=== PATIENT | male | born 1965 | race Caucasian/White ===

== ENCOUNTER → 2018-06-29 | Outpatient (CLI) | payer OTHER ==
[2018-07-01 17:43] LABS: TISSUE TRANSGLUTAMINASE IgA <2 U/mL (0-3)
== END ==
LOC: M LAB 16:34
DX: D50.9 Iron deficiency anemia, unspecified (principal)
CPT/HCPCS: 82784

== ENCOUNTER 2018-07-19 09:13 | Day surgery (SDC) | payer OTHER ==
[~2018-07-19 09:13] MED LIST: LIDOCAINE 2% INJ 100 MG/5 ML SDV (FOR ANES.) As Ordered; PROPOFOL 200 MG/20 ML VIAL As Ordered
[2018-07-19] MEDS: NS 1,000 ML IV (09:57)
[2018-07-19] MEDS ORDERED: PROPOFOL 200 MG/20 ML VIAL As Ordered (10:58)
== END 2018-07-19 11:54 | disposition home or self-care (01) ==
LOC: M OPP 09:13
DX: D50.9 Iron deficiency anemia, unspecified (principal); K57.30 Diverticulosis of large intestine without perforation or abscess without bleeding; K64.8 Other hemorrhoids; K29.70 Gastritis, unspecified, without bleeding; I10 Essential (primary) hypertension; I73.9 Peripheral vascular disease, unspecified; G47.30 Sleep apnea, unspecified; E78.00 Pure hypercholesterolemia, unspecified; R06.83 Snoring; Z79.899 Other long term (current) drug therapy; Z79.01 Long term (current) use of anticoagulants; Z86.718 Personal history of other venous thrombosis and embolism; Z86.711 Personal history of pulmonary embolism; Z86.69 Personal history of other diseases of the nervous system and sense organs
CPT/HCPCS: 45378

== ENCOUNTER 2018-10-29 10:52 | Emergency (ER) | payer OTHER ==
[~2018-10-29] VITALS: Ht 170.2 cm; Wt 117.3 kg
[~2018-10-29 10:52] MED LIST changes: +ATOR80TA59 PO; +BENA20TA8 PO; +DEPA1TAB3 PO; +FERR325T16 PO; +HYDR12CA PO; +IRON28TA PO; -LIDOCAINE 2% INJ 100 MG/5 ML SDV (FOR ANES.) As Ordered; +MULTCAP PO; +NAPR-885 PO; +OMEP20TA PO; +PAME25CA PO; -PROPOFOL 200 MG/20 ML VIAL As Ordered; +PYRI100T5 PO; +ROSU40TA3 PO; +SERT50TA PO; +VITA-122 PO; +VITA10002 PO; +VITA100072 PO; +VITAD1000T PO; +XARE20TA PO
[2018-10-29 12:28] VITALS: BP 134/87
== END 2018-10-29 12:39 | disposition home or self-care (01) ==
LOC: M ED 10:52
DX: S83.92XA Sprain of unspecified site of left knee, initial encounter (principal); W19.XXXA Unspecified fall, initial encounter; Y92.89 Other specified places as the place of occurrence of the external cause; I51.9 Heart disease, unspecified; K21.9 Gastro-esophageal reflux disease without esophagitis; R56.9 Unspecified convulsions; Z79.899 Other long term (current) drug therapy; Z79.01 Long term (current) use of anticoagulants

== ENCOUNTER → 2018-11-19 | Outpatient (CLI) | payer OTHER | LOC: M PLARAD 13:01 | PROVIDERS: ATTEND Family Medicine | DX: M25.562 Pain in left knee (principal); M79.89 Other specified soft tissue disorders; Z53.9 Procedure and treatment not carried out, unspecified reason ==

== ENCOUNTER → 2022-03-11 | Outpatient (CLI) | payer OTHER ==
[~2022-03-11] MED LIST changes: +BENA-8 PO; -BENA20TA8 PO; +BRIN10TA4 PO; +CHOL100029 PO; +CYAN100049 PO; +FERR324T21 PO; -FERR325T16 PO; +JANU100T; +MAGN400C PO; +METO25TA4 PO; +OMEP-358 PO; -OMEP20TA PO; -ROSU40TA3 PO; +ROSU40TA4 PO; +SERT-141 PO; -SERT50TA PO; +TAMS1CAP17; +TOPI100T9; +VITA100018 PO; -VITA10002 PO; -VITA100072 PO; +VITA100093; -VITAD1000T PO; +XARE20TA; +[UNRECOGNIZED DRUG - CODE]
[2022-03-11 18:16] LABS: BASO % 0.4 % (0.0-1.0); EOS # 0.1 10^3/uL (0.0-0.5); EOS % 1.8 % (0.0-3.0); HEMOGLOBIN 13.3 g/dl (13.5-17.5); LYMPH # 2.4 10^3/uL (1.5-5.0); LYMPH % 44.1 % (24.0-44.0); MEAN CORPUSCULAR HEMOGLOBIN 31.7 pg (27.0-33.0); MEAN CORPUSCULAR HGB CONC 34.1 g/dl (32.0-36.5); MEAN CORPUSCULAR VOLUME 93.1 fl (80.0-96.0); MONO # 0.7 10^3/uL (0.0-0.8); MONO % 11.8 % (2.0-8.0); NEUTROPHILS # 2.3 10^3/uL (1.5-8.5); NEUTROPHILS % 41.7 % (36.0-66.0); PLATELET COUNT, AUTOMATED 169 10^3/uL (150-450); RED BLOOD COUNT 4.19 10^6/uL (4.30-6.10); WHITE BLOOD COUNT 5.5 10^3/uL (4.0-10.0)
[2022-03-11 18:39] LABS: ALT/SGPT 30 U/L (12-78); BILIRUBIN,TOTAL 0.3 MG/DL (0.2-1.0); BLOOD UREA NITROGEN 19 MG/DL (7-18); CARBON DIOXIDE LEVEL 25 MEQ/L (21-32); CHLORIDE LEVEL 108 MEQ/L (98-107); CREATININE FOR GFR 0.88 MG/DL (0.70-1.30); GLOMERULAR FILTRATION RATE > 60.0 (>56); GLUCOSE, FASTING 102 MG/DL (70-100); POTASSIUM SERUM 3.8 MEQ/L (3.5-5.1); SODIUM LEVEL 139 MEQ/L (136-145); TOTAL PROTEIN 7.2 GM/DL (6.4-8.2)
== END ==
LOC: M RAD 16:16
PROVIDERS: ATTEND Nurse Practitioner
DX: M79.604 Pain in right leg (principal); Z86.718 Personal history of other venous thrombosis and embolism

== ENCOUNTER → 2022-08-10 | Outpatient (CLI) | payer OTHER ==
[~2022-08-10] MED LIST changes: -JANU100T; +JANU100T PO; -TOPI100T9; +TOPI100T9 PO; -VITA100093; +VITA100093 PO; +VITMTA PO; -[UNRECOGNIZED DRUG - CODE]; +[UNRECOGNIZED DRUG - CODE] PO
== END ==
LOC: M LABSMTC 09:58
PROVIDERS: ATTEND Anesthesiology
DX: Z01.812 Encounter for preprocedural laboratory examination (principal); Z11.52 Encounter for screening for COVID-19

== ENCOUNTER 2022-08-13 08:21 | Day surgery (SDC) | payer OTHER ==
[~2022-08-13] VITALS: Ht 180.3 cm; Wt 100.2 kg
[~2022-08-13 08:21] MED LIST changes: +NS 1,000 ML IV ONE
[2022-08-13] MEDS ORDERED: propofoL 200 MG/20 ML VIAL As Ordered ONE (08:31)
[2022-08-13] MEDS ORDERED: fentaNYL 100 MCG/2 ML INJECTION As Ordered ONE (08:32)
[2022-08-13 10:02] VITALS: BP 104/64
== END 2022-08-13 10:03 | disposition home or self-care (01) ==
LOC: M OPP 08:21
PROVIDERS: ATTEND Surgery
DX: K64.1 Second degree hemorrhoids (principal); K57.30 Diverticulosis of large intestine without perforation or abscess without bleeding; D50.9 Iron deficiency anemia, unspecified; K29.70 Gastritis, unspecified, without bleeding; E11.9 Type 2 diabetes mellitus without complications; G47.30 Sleep apnea, unspecified; G43.909 Migraine, unspecified, not intractable, without status migrainosus; F32.9 Major depressive disorder, single episode, unspecified; F41.9 Anxiety disorder, unspecified; F17.200 Nicotine dependence, unspecified, uncomplicated; Z79.02 Long term (current) use of antithrombotics/antiplatelets; Z79.84 Long term (current) use of oral hypoglycemic drugs; Z79.899 Other long term (current) drug therapy; Z86.69 Personal history of other diseases of the nervous system and sense organs; Z99.89 Dependence on other enabling machines and devices; Z86.711 Personal history of pulmonary embolism; Z86.718 Personal history of other venous thrombosis and embolism; I10 Essential (primary) hypertension; E78.00 Pure hypercholesterolemia, unspecified; G40.909 Epilepsy, unspecified, not intractable, without status epilepticus
CPT/HCPCS: 43239; 45378; 88305; J3010

== ENCOUNTER → 2024-05-31 | Outpatient (REF) | payer OTHER ==
[~2024-05-31] MED LIST changes: -NS 1,000 ML IV ONE; -ROSU40TA4 PO; +ROSU40TA81 PO
[2024-05-31 18:20] LABS: APPEARANCE, URINE CLOUDY (CLEAR); BACTERIA, URINE AUTO NEGATIVE (NEGATIVE); BILIRUBIN, URINE AUTO NEGATIVE (NEGATIVE); BLOOD, URINE BLOOD NEGATIVE (NEGATIVE); COLOR, URINE AMBER (YELLOW); GLUCOSE, URINE (UA) AUTO 3+ mg/dL (NEGATIVE); KETONE, URINE AUTO NEGATIVE (NEGATIVE); LEUKOCYTE ESTERASE, URINE AUTO NEGATIVE (NEGATIVE); NITRITE, URINE AUTO NEGATIVE (NEGATIVE); PROTEIN, URINE AUTO NEGATIVE (NEGATIVE); RBC, URINE AUTO 0 /HPF (0-3); SPECIFIC GRAVITY URINE AUTO 1.024 (1.002-1.035); SQUAMOUS EPITHELIAL CELL UR AU 0 /HPF (0-6); UROBILINOGEN, URINE AUTO 0.2 mg/dL (0.0-2.0); WBC, URINE AUTO 0 /HPF (0-3)
== END ==
LOC: M SMT 17:29
PROVIDERS: ATTEND Physician Assistant
DX: R31.0 Gross hematuria (principal)
CPT/HCPCS: 51798; 81001; 87086; 88108; G0463

== ENCOUNTER → 2024-07-12 | Outpatient (REF) | payer OTHER ==
[2024-07-12 10:58] LABS: APPEARANCE, URINE HAZY (CLEAR); BACTERIA, URINE AUTO NEGATIVE (NEGATIVE); BILIRUBIN, URINE AUTO NEGATIVE (NEGATIVE); BLOOD, URINE BLOOD NEGATIVE (NEGATIVE); COLOR, URINE YELLOW (YELLOW); GLUCOSE, URINE (UA) AUTO 3+ mg/dL (NEGATIVE); KETONE, URINE AUTO NEGATIVE (NEGATIVE); LEUKOCYTE ESTERASE, URINE AUTO NEGATIVE (NEGATIVE); MUCUS, URINE SMALL (NEGATIVE); NITRITE, URINE AUTO NEGATIVE (NEGATIVE); PROTEIN, URINE AUTO NEGATIVE (NEGATIVE); RBC, URINE AUTO 0 /HPF (0-3); SPECIFIC GRAVITY URINE AUTO 1.026 (1.002-1.035); SQUAMOUS EPITHELIAL CELL UR AU 0 /HPF (0-6); UROBILINOGEN, URINE AUTO 0.2 mg/dL (0.0-2.0); WBC, URINE AUTO 3 /HPF (0-3)
== END ==
LOC: M SMT 10:04
PROVIDERS: ATTEND Physician Assistant
DX: R31.0 Gross hematuria (principal)

== ENCOUNTER 2025-03-27 08:10 | Day surgery (SDC) | payer OTHER ==
[~2025-03-27] VITALS: Ht 170.2 cm; Wt 108.7 kg
[~2025-03-27 08:10] MED LIST changes: +AMIT25TA19; +DIVA500T9 PO; +EZET10TA21; +FENO145T7 PO; +LIDOCAINE 2% MDV 20 ML VIAL As Ordered ONE; +SERTRALINE; +TOPI-14; +TOPI-257 PO; -TOPI100T9 PO
[2025-03-27 09:21] VITALS: TEMP 97.3
[2025-03-27 09:48] VITALS: BP 100/63; O2SAT 96
== END 2025-03-27 09:49 | disposition home or self-care (01) ==
LOC: M OPP 08:10
PROVIDERS: ATTEND Internal Medicine Gastroenterology
DX: K57.30 Diverticulosis of large intestine without perforation or abscess without bleeding (principal); K64.1 Second degree hemorrhoids; K62.5 Hemorrhage of anus and rectum; D50.9 Iron deficiency anemia, unspecified; K31.89 Other diseases of stomach and duodenum; K22.70 Barrett's esophagus without dysplasia; G47.30 Sleep apnea, unspecified; Z79.01 Long term (current) use of anticoagulants; Z79.899 Other long term (current) drug therapy; Z86.718 Personal history of other venous thrombosis and embolism; R56.9 Unspecified convulsions; Z86.711 Personal history of pulmonary embolism
CPT/HCPCS: 43239; 45378; 88305; J3010

== ENCOUNTER → 2025-04-26 | Outpatient (CLI) | payer OTHER ==
[~2025-04-26] MED LIST changes: +HYDR12.510 PO; -HYDR12CA PO; -LIDOCAINE 2% MDV 20 ML VIAL As Ordered ONE
== END ==
LOC: M RAD 07:48
PROVIDERS: ATTEND Neurological Surgery
DX: M47.12 Other spondylosis with myelopathy, cervical region (principal); M48.02 Spinal stenosis, cervical region

== ENCOUNTER → 2025-05-01 | Outpatient (CLI) | payer OTHER | LOC: M RAD 14:18 | PROVIDERS: ATTEND Neurological Surgery | DX: M48.02 Spinal stenosis, cervical region (principal) ==

== ENCOUNTER 2025-05-25 11:53 | Inpatient (IN) | payer OTHER ==
[~2025-05-25] VITALS: Ht 170.2 cm; Wt 111.3 kg
[~2025-05-25 11:53] MED LIST changes: -AMIT25TA19; +AMIT25TA19 PO; -EZET10TA21; +EZET10TA57 PO; -TAMS1CAP17; +TAMS1CAP17 PO
[2025-05-25] MEDS ORDERED: BISACODYL 10 MG SUPP PR PRN (12:30)
[2025-05-25] MEDS ORDERED: MOM 30 ML SUSPENSION UDC PO PRN (12:30)
[2025-05-25] MEDS ORDERED: ONDANSETRON 4MG ORAL DISINTEGRATING TAB PO PRN (12:30)
[2025-05-25] MEDS ORDERED: MAALOX 30 ML SUSP *UDC PO PRN (12:30)
[2025-05-25] MEDS ORDERED: SIMETHICONE 80MG CHEW TAB PO PRN (12:30)
[2025-05-25] MEDS ORDERED: QUEtiapine FUMARATE 12.5 MG HALF-TAB PO PRN (12:30)
[2025-05-25] MEDS ORDERED: PREGABALIN 100 MG CAP PO SCH (13:00)
[2025-05-25 15:00] VITALS: BP 138/60; TEMP 98.9; O2SAT 100
[2025-05-25] MEDS ORDERED: GLUCOSE 4 GM CHEW PO PRN (15:10)
[2025-05-25] MEDS ORDERED: GLUCAGON INJ 1 MG VIAL SC PRN (15:10)
[2025-05-25] MEDS ORDERED: DEXTROSE 50% 50 ML SYRINGE IV PRN (15:10)
[2025-05-25] MEDS ORDERED: ACET-907 PO (16:04)
[2025-05-25] MEDS ORDERED: MOM30SS2 PO (16:13)
[2025-05-25] MEDS ORDERED: INSUHUMDS SC (16:13)
[2025-05-25] MEDS ORDERED: CELE1CAP99 PO (16:13)
[2025-05-25] MEDS ORDERED: DOCU100C16 PO (16:13)
[2025-05-25] MEDS ORDERED: THERTAB52 PO (16:15)
[2025-05-25] MEDS ORDERED: PANT-23 PO (16:18)
[2025-05-25] MEDS ORDERED: ONDA-83 PO (16:18)
[2025-05-25] MEDS ORDERED: SENN-186 PO (16:22)
[2025-05-25] MEDS ORDERED: LIDO1ADH20 TP (16:22)
[2025-05-25] MEDS ORDERED: ZOLO100T PO (16:25)
[2025-05-25] MEDS ORDERED: TOPI-257 PO (16:27)
[2025-05-25] MEDS ORDERED: HOME MED LIST COMPLETE! XX SCH (16:30)
[2025-05-25] MEDS: INSULIN LISPRO (NovoLOG) PER UNIT SC SCH (18:03)
[2025-05-25 20:00] VITALS: BP 141/78; TEMP 98.9; O2SAT 97
[2025-05-25] MEDS: DOCUSATE SODIUM 100 MG CAPSULE PO SCH (20:39)
[2025-05-25] MEDS: DIVALPROEX 500 MG *ER* TAB PO SCH (20:39)
[2025-05-25] MEDS: AMITRIPTYLINE 10 MG TABLET PO SCH (20:40)
[2025-05-25] MEDS: FERROUS GLUCONATE 324 MG TAB PO SCH (20:41)
[2025-05-25] MEDS: TAMSULOSIN 0.4 MG CAP PO SCH (20:41)
[2025-05-25] MEDS: RAMELTEON 8 MG TAB PO SCH (20:43)
[2025-05-25] MEDS: METOPROLOL TART 25 MG TABLET PO SCH (20:43)
[2025-05-25] MEDS: SENNA 8.6 MG TAB PO SCH (20:43)
[2025-05-25] MEDS: TOPIRAMATE 100 MG TAB PO SCH (20:43)
[2025-05-26 04:00] VITALS: BP 157/74; TEMP 98.3; O2SAT 96
[2025-05-26] MEDS: DAPAGLIFLOZIN PROPANEDIOL 10 MG TABLET PO SCH (08:18)
[2025-05-26] MEDS: MULTIVITAMINS/MINERALS THERAP 1 TAB PO SCH (08:20)
[2025-05-26] MEDS: EZETIMIBE 10 MG TABLET PO SCH (08:20)
[2025-05-26] MEDS: BENAZEPRIL 20 MG TAB PO SCH (08:20)
[2025-05-26] MEDS: VITAMIN D 1,000 INTERNATIONAL UNITS TABLET PO SCH (08:20)
[2025-05-26] MEDS: OMEPRAZOLE 20MG CAP PO SCH (08:20)
[2025-05-26] MEDS: SERTRALINE 100 MG TAB PO SCH (08:21)
[2025-05-26] MEDS: RIVAROXABAN 20MG TAB PO SCH (08:21)
[2025-05-26 12:13] VITALS: BP 104/52; TEMP 97.4; O2SAT 99
[2025-05-26 12:58] LABS: BASO # 0.0 10^3/uL (0.0-0.2); BASO % 0.5 % (0.0-1.0); EOS # 0.2 10^3/uL (0.0-0.5); EOS % 3.0 % (0.0-3.0); LYMPH # 1.7 10^3/uL (1.5-5.0); LYMPH % 26.0 % (24.0-44.0); MONO # 0.7 10^3/uL (0.0-0.8); MONO % 10.2 % (2.0-8.0); NEUTROPHILS # 3.7 10^3/uL (1.5-8.5); NEUTROPHILS % 58.0 % (36.0-66.0); PLATELET COUNT, AUTOMATED 293 10^3/uL (150-450)
[2025-05-26 13:28] LABS: ALT/SGPT 77 U/L (7.0-40); AST/SGOT 46 U/L (<34); CALCIUM LEVEL 8.9 MG/DL (8.3-10.6); CARBON DIOXIDE LEVEL 25 MMOL/L (20-31); CHLORIDE LEVEL 105 MMOL/L (98-107); CREATININE FOR GFR 0.80 MG/DL (0.70-1.30); GLOMERULAR FILTRATION RATE > 90.0 (>49); POTASSIUM SERUM 4.4 MMOL/L (3.5-5.1); SODIUM LEVEL 139 MMOL/L (136-145)
[2025-05-26 19:40] VITALS: BP 118/59; TEMP 98.4; O2SAT 95
[2025-05-26] MEDS: PREGABALIN 100 MG CAP PO PRN (20:25)
[2025-05-26] MEDS: ACETAMINOPHEN 500 MG TAB PO PRN (20:26)
[2025-05-27 06:30] VITALS: BP 122/65; TEMP 98.2; O2SAT 95
[2025-05-27 07:19] VITALS: BP 124/58
[2025-05-27] MEDS: BENAZEPRIL 5 MG TAB PO SCH (07:23)
[2025-05-27 11:54] VITALS: BP 106/58; TEMP 98.1; O2SAT 100
[2025-05-27 20:00] VITALS: BP 128/60; TEMP 98.8; O2SAT 100
[2025-05-28 04:00] VITALS: BP 106/57; TEMP 98.2; O2SAT 100
[2025-05-28 12:00] VITALS: BP 124/69; TEMP 97.7; O2SAT 100
[2025-05-28 20:00] VITALS: BP 118/57; TEMP 97.9; O2SAT 99
[2025-05-29 04:00] VITALS: BP 129/73; TEMP 98.2; O2SAT 98
[2025-05-29 08:20] VITALS: BP 125/61; TEMP 98.2; O2SAT 96
[2025-05-29 12:00] VITALS: BP 112/58; TEMP 97.5; O2SAT 99
[2025-05-29] MEDS: ACETAMINOPHEN 500 MG TAB PO SCH (15:48)
[2025-05-29 19:33] VITALS: BP 130/62; TEMP 98.3; O2SAT 95
[2025-05-29] MEDS: FERROUS GLUCONATE 324 MG TAB PO SCH (20:33)
[2025-05-30 04:57] VITALS: BP 121/72; TEMP 97.4; O2SAT 97
[2025-05-30 12:00] VITALS: BP 116/59; TEMP 97.7; O2SAT 98
[2025-05-30 20:00] VITALS: BP 136/65; TEMP 97.8; O2SAT 95
[2025-05-31 04:00] VITALS: BP 119/71; TEMP 97.7; O2SAT 100
[2025-05-31 12:00] VITALS: BP 113/58; TEMP 97.1; O2SAT 98
[2025-05-31 20:00] VITALS: BP 135/65; TEMP 98.3; O2SAT 96
[2025-06-01 04:00] VITALS: BP 120/70; TEMP 97.7; O2SAT 97
[2025-06-01] MEDS ORDERED: BENA1TAB23 PO (11:40)
[2025-06-01] MEDS ORDERED: METO25TA4 PO (11:40)
[2025-06-01] MEDS ORDERED: AMIT10TA11 PO (11:40)
[2025-06-01] MEDS ORDERED: OMEP-173 PO (11:40)
[2025-06-01] MEDS ORDERED: RAME8TAB2 PO (11:40)
[2025-06-01] MEDS ORDERED: XARE20TA PO (11:40)
[2025-06-01] MEDS ORDERED: FARX1TAB3 PO (11:40)
[2025-06-01] MEDS ORDERED: CELE1CAP99 PO (11:40)
[2025-06-01] MEDS ORDERED: VITAD1000T PO (11:40)
[2025-06-01] MEDS ORDERED: TIZA10TA PO (11:40)
[2025-06-01 12:03] VITALS: BP 118/57; TEMP 97.8; O2SAT 97
[2025-06-01] MEDS: BISACODYL 5 MG TAB PO PRN (13:48)
[2025-06-01 20:00] VITALS: BP 118/59; TEMP 97.7; O2SAT 98
[2025-06-02 04:00] VITALS: BP 122/70; TEMP 97.7; O2SAT 95
[2025-06-02 08:02] VITALS: BP 135/64
[2025-06-02 08:05] VITALS: BP 135/64
== END 2025-06-02 11:15 | disposition home or self-care (01) | DRG 92 ==
LOC: M PM&R 15:00
PROVIDERS: ADMIT Physical Medicine & Rehabilitation; ATTEND Physical Medicine & Rehabilitation
DX: G92.8 Other toxic encephalopathy (principal); D62 Acute posthemorrhagic anemia; G89.18 Other acute postprocedural pain; F32.A Depression, unspecified; F41.9 Anxiety disorder, unspecified; T40.2X5A Adverse effect of other opioids, initial encounter; G47.00 Insomnia, unspecified; E78.5 Hyperlipidemia, unspecified; I10 Essential (primary) hypertension; E66.01 Morbid (severe) obesity due to excess calories; K21.9 Gastro-esophageal reflux disease without esophagitis; G47.33 Obstructive sleep apnea (adult) (pediatric); G43.909 Migraine, unspecified, not intractable, without status migrainosus; M54.50 Low back pain, unspecified; G31.84 Mild cognitive impairment of uncertain or unknown etiology; N40.0 Benign prostatic hyperplasia without lower urinary tract symptoms; R74.01 Elevation of levels of liver transaminase levels; Z68.38 Body mass index [BMI] 38.0-38.9, adult; Z86.711 Personal history of pulmonary embolism; Z96.643 Presence of artificial hip joint, bilateral; Z79.01 Long term (current) use of anticoagulants; E11.40 Type 2 diabetes mellitus with diabetic neuropathy, unspecified; K59.00 Constipation, unspecified; Z79.4 Long term (current) use of insulin; Z79.899 Other long term (current) drug therapy

== ENCOUNTER → 2025-07-12 | Outpatient (CLI) | payer OTHER ==
[~2025-07-12] MED LIST changes: +ACET-907 PO; +AMIT10TA11 PO; +BENA1TAB23 PO; +CELE1CAP99 PO; +DOCU100C16 PO; +FARX1TAB3 PO; +INSUHUMDS SC; +LIDO1ADH20 TP; +MOM30SS2 PO; +OMEP-173 PO; +ONDA-83 PO; +PANT-23 PO; +RAME8TAB2 PO; +SENN-186 PO; +THERTAB52 PO; +TIZA10TA PO; +VITAD1000T PO; +ZOLO100T PO
== END ==
LOC: M RAD 10:40
PROVIDERS: ATTEND Neurological Surgery
DX: G95.9 Disease of spinal cord, unspecified (principal); M48.02 Spinal stenosis, cervical region; M47.812 Spondylosis without myelopathy or radiculopathy, cervical region

== ENCOUNTER → 2025-07-21 | Outpatient (CLI) | payer OTHER ==
[2025-07-21 17:08] LABS: BASO # 0.0 10^3/uL (0.0-0.2); BASO % 0.6 % (0.0-1.0); EOS # 0.2 10^3/uL (0.0-0.5); EOS % 2.6 % (0.0-3.0); LYMPH # 2.3 10^3/uL (1.5-5.0); LYMPH % 35.0 % (24.0-44.0); MONO # 0.6 10^3/uL (0.0-0.8); MONO % 9.4 % (2.0-8.0); NEUTROPHILS # 3.4 10^3/uL (1.5-8.5); NEUTROPHILS % 52.1 % (36.0-66.0); PLATELET COUNT, AUTOMATED 236 10^3/uL (150-450)
[2025-07-21 17:32] LABS: ALT/SGPT 29 U/L (7.0-40); AST/SGOT 27 U/L (<34); CALCIUM LEVEL 9.0 MG/DL (8.3-10.6); CARBON DIOXIDE LEVEL 26 MMOL/L (20-31); CHLORIDE LEVEL 105 MMOL/L (98-107); CREATININE FOR GFR 0.95 MG/DL (0.70-1.30); GLOMERULAR FILTRATION RATE > 90.0 (>49); IRON (FE) 34 UG/DL (65-175); PERCENT SATURATION 10.7 % (19.7-50.0); POTASSIUM SERUM 4.4 MMOL/L (3.5-5.1); SODIUM LEVEL 141 MMOL/L (136-145)
[2025-07-21 17:34] LABS: VITAMIN B12 LEVEL 630 PG/ML (211-911)
== END ==
LOC: M LAB 16:27
PROVIDERS: ATTEND Nurse Practitioner
DX: D64.9 Anemia, unspecified (principal)